=== PATIENT | male | born 1970 | race Two or more races ===

== ENCOUNTER → 2017-11-15 | Day surgery (SDC) | payer OTHER ==
--- NOTE | 2017-11-15 12:34 | RADIOLOGY REPORT (SQ) ---
EXAM DESCRIPTION: ARTHRO WRIST; FLUORO/NEEDLE PLACEMENT COMPLETED DATE/TIME: 11/15/2017 12:24 pm REASON FOR STUDY: R WRIST PAIN COMPARISON: None. FLUOROSCOPY TIME: 15 seconds 2 digital radiographic images saved to PACS. LIMITATIONS: None. PROCEDURE: Procedure, risks, benefits and alternatives explained to patient who then gave written co nsent. The dorsal right wrist was marked and a time-out was called for correct marking verification. Radiocarpal site marked using fluoroscopic guidance. Wrist prepped and draped using sterile techniq ue. Local anesthesia achieved using 1 mL of 1% lidocaine injection. 25 gauge needle introduced into the joint space under direct fluoroscopic visualization. Non-ionic contrast instilled to confirm int ra-articular position. Dilute gadolinium solution then injected. Needle removed and entry site cover ed with sterile bandage. No immediate complications noted. TECHNIQUE: Digital images acquired during fluoroscopy and stored on PACS. Patient immediately take n to the MR suite for additional imaging. INJECTION LOCATION: Right radiocarpal/radioscaphoid joint CONTRAST TYPE AND AMOUNT: 0.5 mL of Isovue-300 was injected, followed by 3 mL of dilute Prohance/Sali ne mixture. IMPRESSION: SUCCESSFUL NEEDLE PLACEMENT AND INJECTION FOR RIGHT WRIST MR ARTHROGRAM. COMMENT: Quality ID #145: Final reports for procedures using fluoroscopy that document radiation exp osure indices, or exposure time and number of fluorographic images (if radiation exposure indices are not available) TECHNICAL DOCUMENTATION: JOB ID: [id number] [employer]/- All Rights Reserved Reading location - IP/workstation name: [email or web address]
--- NOTE | 2017-11-15 12:34 | RADIOLOGY REPORT (SQ) ---
EXAM DESCRIPTION: ARTHRO WRIST; FLUORO/NEEDLE PLACEMENT COMPLETED DATE/TIME: 11/15/2017 12:24 pm REASON FOR STUDY: R WRIST PAIN COMPARISON: None. FLUOROSCOPY TIME: 15 seconds 2 digital radiographic images saved to PACS. LIMITATIONS: None. PROCEDURE: Procedure, risks, benefits and alternatives explained to patient who then gave written co nsent. The dorsal right wrist was marked and a time-out was called for correct marking verification. Radiocarpal site marked using fluoroscopic guidance. Wrist prepped and draped using sterile techniq ue. Local anesthesia achieved using 1 mL of 1% lidocaine injection. 25 gauge needle introduced into the joint space under direct fluoroscopic visualization. Non-ionic contrast instilled to confirm int ra-articular position. Dilute gadolinium solution then injected. Needle removed and entry site cover ed with sterile bandage. No immediate complications noted. TECHNIQUE: Digital images acquired during fluoroscopy and stored on PACS. Patient immediately take n to the MR suite for additional imaging. INJECTION LOCATION: Right radiocarpal/radioscaphoid joint CONTRAST TYPE AND AMOUNT: 0.5 mL of Isovue-300 was injected, followed by 3 mL of dilute Prohance/Sali ne mixture. IMPRESSION: SUCCESSFUL NEEDLE PLACEMENT AND INJECTION FOR RIGHT WRIST MR ARTHROGRAM. COMMENT: Quality ID #[id number]: Final reports for procedures using fluoroscopy that document radiation exp osure indices, or exposure time and number of fluorographic images (if radiation exposure indices are not available) TECHNICAL DOCUMENTATION: JOB ID: [id number] [employer]- All Rights Reserved Reading location - IP/workstation name: [id number]
--- NOTE | 2017-11-15 14:17 | RADIOLOGY REPORT (SQ) ---
EXAM DESCRIPTION: MRI RT UPPER JOINT WITH COMPLETED DATE/TIME: 11/15/2017 12:43 pm REASON FOR STUDY: R WRIST PAIN COMPARISON: None. TECHNIQUE: Right wrist post-arthrogram imaging includes T1 and T1 and T2 fat sat sequences. LIMITATIONS: None. FINDINGS: JOINT DISTENSION: Adequate. No loose body. BONE MARROW: No alteration of signal to suggest marrow replacement or edema. No occult fracture. No l arge osteophytes. CARPAL ALIGNMENT AND ARTICULATION: There is mild dorsal subluxation of the distal ulna at the distal radioulnar joint best shown on axial image 17. Ligament disruption at the distal radioulnar joint is suspected, there is extension of intra-articular contrast into the distal radioulnar joint space. Normal alignment of the carpal bones. However, there is a torn lunatotriquetral ligament allowing co ntrast from the radiocarpal joint to enter the intercarpal joint spaces. Subcortical cysts are present at the capitate-hamate articulation best shown on coronal series 5, juana ge 9. SCAPHOLUNATE LIGAMENT: Grossly intact on axial T1 image 13. No widening of the scapholunate interval LUNATO-TRIQUETRAL LIGAMENT: Torn without widening of the lunatotriquetral interval. There is contras t in the intercarpal joint spaces. TFC COMPLEX: Radial attachments are normal. Ulnar attachments are torn, with contrast extending into the distal radioulnar joint. 1-6 EXTENSOR COMPARTMENTS: Normal. Specifically no tendinopathy of the abductor pollicis longus or ex tensor pollicis brevis to suggest de Quervains syndrome. CARPAL TUNNEL AND MEDIAN NERVE: Normal volume and morphology of carpal tunnel proximal at the level o f the radiocarpal joint and distally at the hook of the hamate. No thickening or signal alteration of median nerve. OTHER: No other significant finding. IMPRESSION: Internal derangement as above TECHNICAL DOCUMENTATION: JOB ID: [id number] [employer]- All Rights Reserved Reading location - IP/workstation name: [email or web address]
== END ==
LOC: RAD 11:43 → EDSTATUS 12:00
PROVIDERS: ATTEND Physician Assistant
DX: M25.531 Pain in right wrist (principal); S69.91XA Unspecified injury of right wrist, hand and finger(s), initial encounter; X58.XXXA Exposure to other specified factors, initial encounter
CPT/HCPCS: 73222; 73115; 77002; A9576

== ENCOUNTER 2018-03-25 08:31 | Day surgery (SDC) | payer OTHER ==
[~2018-03-25 08:31] MED LIST: ACETAMINOPHEN 1,000 MG/100 ML RTUPB IV ONE; CEFAZOLIN 2 GM/D5W RTU 2 GM/50 ML RTUPB IV SCH; FENTANYL CITRATE INJ/PF 100 MCG/2 ML AMPUL ONE; LACTATED RINGERS 1000 ML IV PRN; LIDOCAINE 0.5% INJ-PF (5 MG/ML) 50 ML SDV SUBCUT PRN; LIDOCAINE 2% INJ-PF (20 MG/ML) 10 ML AMPUL ONE; MIDAZOLAM 2 MG/2 ML INJ ONE; ONDANSETRON HCL INJ/PF 4 MG/2 ML SDV ONE; PROPOFOL INJ 200 MG/20 ML VIAL IV ONE
[2018-03-25] MEDS ORDERED: CEFAZOLIN 2 GM/D5W RTU 2 GM/50 ML RTUPB IV ONE (09:05)
[2018-03-25] MEDS ORDERED: BUPIVACAINE HCL 0.5 % INJ/PF 30 ML SDV ONE (10:58)
[2018-03-25] MEDS ORDERED: LIDOCAINE 1% INJ-PF (10 MG/ML) 30 ML SDV ONE (10:58)
[2018-03-25] MEDS ORDERED: DIPHENHYDRAMINE HCL 50 MG/ML VIAL IV PRN (11:31)
[2018-03-25] MEDS ORDERED: ONDANSETRON HCL INJ/PF 4 MG/2 ML SDV IV PRN (11:31)
[2018-03-25] MEDS ORDERED: PROMETHAZINE HCL INJ 25 MG/1 ML VIAL IV PRN ×2 (11:31)
[2018-03-25] MEDS ORDERED: MORPHINE SULFATE 10 MG/ML INJ IV PRN (11:31)
[2018-03-25] MEDS ORDERED: FENTANYL CITRATE INJ/PF 100 MCG/2 ML AMPUL IV PRN ×3 (11:31)
[2018-03-25] MEDS ORDERED: MEPERIDINE HCL/PF INJ 25 MG/1 ML DISP.SYRIN IV PRN (11:31)
[2018-03-25 14:44] VITALS: BP 118/60
--- NOTE | 2018-04-04 13:24 | Operative Report ---
Operative Report DATE OF SURGERY: 03/25/18 PREOPERATIVE DIAGNOSIS: Right carpal tunnel syndrome POSTOPERATIVE DIAGNOSIS: Same OPERATION: Right endoscopic carpal tunnel release SURGEON: MARIIA MONTALVO ANESTHESIA: LMAC COMPLICATIONS: None ESTIMATED BLOOD LOSS: Minimal PROCEDURE: Indication for above procedure: 47-year-old male with long-standing history of numbness and tingling in his right hand. Patient was treated elsewhere and failed conservative measures. Electrodiagnostic testing demonstrated moderate carpal tunnel syndrome. At that point decision was made to proceed with operative intervention. Procedure In Detail: Patient was seen and evaluated in the preoperative holding area. The RIGHT upper extremity was initialized and marked. Patient received Ancef IV for bacterial prophylaxis. Patient was taken back to the operative room where transferred operative table. Patient was then placed under MAC anesthesia. Once adequately anesthetized, a nonsterile tourniquet was placed on the upper extremity. A surgical team debriefing was performed ensuring all instrumentation was available, the surgical procedure was discussed with possible concerns reviewed. Skin was prepped with alcohol and 10cc of 1% lidocaine without epinephrine was injected locally and w/in carpal canal. The upper extremity was prepped with chlorhexidine and alcohol and draped in a sterile fashion. A timeout was done identifying correct patient, procedure and extremity everyone in attendance agree with this and verbalized no concerns.The extremity was then exsanguinated the tourniquet was inflated to 250 mmHg. A transverse skin incision was made just proximal to the wrist flexion crease ulnar to the palmaris longus. Blunt dissection was performed down to the palmaris longus tendon which was retracted radially. Deep to the palmaris longus tendon was the volar carpal ligament this was incised identifying the median nerve deep. With the use of a Jerusalem elevator any soft tissue/synovium was freed from the undersurface of the transverse carpal ligament. The hook of hamate was identified ulnarly. The ConMed cannulas were then introduced beginning with #1 progressing to a #3 gently dilating the carpal canal. I then introduced the scope within the cannula and identified transverse carpal ligament ensuring the median nerve was not visualized within the cannula. I triangulated distally with a 25-gauge needle identifying the distal aspect of the transverse carpal ligament, to ensure protection of the superficial palmar arch. The arthroscopic knife was used to incise the transverse carpal ligament under direct visualization with the arthroscopic camera. Any excess transverse fibers that remained after the first past were carefully released with a repeat pass. The median nerve was then directly visualized radially without disruption. Once this was completed I placed the #3 dilator and assured I got complete release of the transverse carpal ligament without residual compression. The median nerve was directly visualized and free of any overlying compression. I then turned my attention to release of the volar antebrachial fascia proximally. Once again a [place] was used to open the wound and I proceeded with cannula #1 to #3. The arthroscope was introduced into the cannula and under direct visualization the volar antebrachial fascia was released. Once this was complete I copiusly irrigated the wound with normal saline. The skin incision was closed with 4-0 Monocryl subcutaneous and a running subcuticular 4-0 Monocryl. This was reinforced with Dermabond and Steri -Strips. Sterile, 4 x 4's and a Celso bandage was placed loosely. Sponge counts , instrument counts and needle counts were correct. The was no intraoperative complications patient tolerated the procedure well and was stable to PACU.
--- NOTE | 2018-04-04 13:24 | Discharge Summary ---
Discharge Summary (SDC) - Discharge Final Diagnosis: Right carpal tunnel syndrome Date of Surgery: 03/25/18 Discharge Date: 03/25/18 Condition: Good Treatment or Instructions: Schedule Follow Up w/ Dr. Ganesh Savage @ [facility] to be seen in 10-14 days or as scheduled [place]: [place]: [place]: May remove dressing on postop day #3, keep incision covered and dry. Ice and elevate May begin finger range of motion attempting to make full fist. Stool softener of choice when on pain medication. Prescriptions: Hydrocodone/Acetaminophen [[place] 5-325 mg Tablet] 1 tab PO Q6 PRN #15 tablet PRN Reason: Referrals: ONEYDA SÁNCHEZ PA [Primary Care Provider] - Discharge Diet: As Tolerated Respiratory Treatments at Home: Deep Breathing/Coughing Discharge Activity: No Lifting Over 10 Pounds, No Lifting/Push/Pulling Report the Following to Your Physician Immediately: Fever over 101 Degrees, Unusual Bleeding, Redness, Swelling, Warmth, Increased Soreness
== END 2018-03-25 13:30 | disposition home or self-care (01) ==
LOC: OROUT 08:31
PROVIDERS: ATTEND Orthopaedic Surgery
DX: G56.01 Carpal tunnel syndrome, right upper limb (principal); Z79.899 Other long term (current) drug therapy; Z01.818 Encounter for other preprocedural examination
CPT/HCPCS: 29848; J2250; J3010; J3490 ×2; J2405; J2704; J0690; J0131; 1810